=== PATIENT | female | born 1950 | race Caucasian/White ===

== ENCOUNTER → 2021-07-31 | Outpatient (CLI) | payer MEDICARE ==
[2021-07-31 14:05] LABS: HCT 41.3 % (34.0-46.0); HGB 13.4 gm/dL (11.4-16.0); MCH 30.1 pg (25.0-35.0); MCHC 32.5 g/dL (31.0-37.0); MCV 92.5 fL (80.0-100.0); Mean Platelet Volume 7.4; Platelet Count 173 k/uL (150-450); RBC 4.47 m/uL (3.80-5.40); RDW 13.8 % (11.5-15.5); WBC 8.2 k/uL (3.8-10.6)
[2021-07-31 14:14] LABS: ALT 30 U/L (4-34); AST 31 U/L (14-36); African American GFR (CKD) >90 (>60 ml/min/1.73 sqM); Alkaline Phosphatase 126 U/L (38-126); Anion Gap 8 mmol/L; Blood Urea Nitrogen 14 mg/dL (7-17); Calcium 9.3 mg/dL (8.4-10.2); Carbon Dioxide 30 mmol/L (22-30); Chloride 101 mmol/L (98-107); Glucose 100 mg/dL (74-99); Non-African American GFR(CKD) >90 (>60 ml/min/1.73 sqM); Potassium 3.4 mmol/L (3.5-5.1); Sodium 139 mmol/L (137-145); Total Bilirubin 0.5 mg/dL (0.2-1.3); Total Protein 6.9 g/dL (6.3-8.2)
[2021-07-31 14:50] LABS: INR 0.8 (<1.2); Partial Thromboplastin Time 24.8 sec (22.0-30.0); Prothrombin Time 9.4 sec (9.0-12.0)
[2021-07-31 15:14] LABS: Appearance,Urine Cloudy (Clear); Bacteria,Urine Few /hpf; Bilirubin,Urine Negative (Negative); Blood,Urine Negative (Negative); Color,Urine Yellow; Glucose,Urine (UA) Negative (Negative); Ketones,Urine Negative (Negative); Leukocyte Esterase,Urine Trace (Negative); Mucus,Urine Rare /hpf; Nitrite,Urine Negative (Negative); PH, Urine 7.5 (5.0-8.0); Protein,Urine Trace (Negative); RBC,Urine 1 /hpf (0-5); Specific Gravity,Urine 1.021 (1.001-1.035); Squamous Epithelial Cell,Urine 3 /hpf (0-4); Urobilinogen,Urine <2.0 mg/dL (<2.0); WBC,Urine 3 /hpf (0-5)
== END | disposition home or self-care (01) ==
LOC: LABPAT 13:36
PROVIDERS: ATTEND Orthopaedic Surgery Sports Medicine
DX: Z01.812 Encounter for preprocedural laboratory examination (principal)
CPT/HCPCS: 80053; 81001; 85027; 85610; 85730; 87070

== ENCOUNTER 2021-08-22 10:18 | Day surgery (SDC) | payer MEDICARE ==
[2021-08-20 10:34] VITALS: BMI 40.1
[~2021-08-22 10:18] MED LIST: ACETAMINOPHEN TAB 500 MG TAB PO PRN; DEXAMETHASONE SOD PHOSPHATE 4 MG/ML 1 ML VIAL IV ONE; GABAPENTIN 300 MG CAP PO PRN; HYDROmorphone 0.5 MG/0.5 ML SYRINGE IVP PRN; LACTATED RINGERS 1,000 ML IV SCH; MELOXICAM 7.5 MG TAB PO PRN; ONDANSETRON 4 MG/2 ML VIAL IVP ONE; ONDANSETRON 4 MG/2 ML VIAL IVP PRN; TRANEXAMIC ACID 1,000 MG in SODIUM CHLORIDE 0.9% 100 ML IVPB PRN
[2021-08-22] MEDS ORDERED: LIDOCAINE 1% (10MG/ML) FOR IV START INTRADERMA ONE (11:03)
[2021-08-22] MEDS ORDERED: MIDAZOLAM 2 MG/2 ML VIAL IVP ONE (11:41)
[2021-08-22] MEDS ORDERED: SODIUM CHLORIDE 0.9% 100 ML BAG ONE (12:55)
[2021-08-22] MEDS ORDERED: PROPOFOL 10 MG/ML 20 ML VIAL IV ONE (12:55)
[2021-08-22] MEDS ORDERED: diphenhydrAMINE 50 MG/ML 1 ML VIAL ONE (12:55)
[2021-08-22] MEDS ORDERED: fentaNYL (PF) 50 MCG/ML 2 ML AMP ONE (12:55)
[2021-08-22] MEDS ORDERED: TRANEXAMIC ACID 1,000 MG/10 ML VIAL ONE (12:55)
[2021-08-22] MEDS ORDERED: DEXAMETHASONE SOD PHOSPHATE 4 MG/ML 1 ML VIAL ONE (12:55)
[2021-08-22] MEDS ORDERED: ROPIVACAINE 5 MG/ML 30 ML VIAL ONE (12:55)
[2021-08-22] MEDS ORDERED: MIDAZOLAM 2 MG/2 ML VIAL ONE (12:55)
[2021-08-22] MEDS ORDERED: ceFAZolin 3,000 MG in SODIUM CHLORIDE 0.9% IRRIGATIO 3,000 ML IRRIGATION ONE (13:00)
[2021-08-22] MEDS ORDERED: LACTATED RINGERS 1,000 ML IV ONE (13:30)
[2021-08-22] MEDS ORDERED: HYDROmorphone 0.5 MG/0.5 ML SYRINGE IVP PRN ×2 (15:09)
[2021-08-22] MEDS ORDERED: ONDANSETRON 4 MG/2 ML VIAL IVP PRN (15:09)
[2021-08-22] MEDS ORDERED: hydrOXYzine pamoate 25 MG CAP PO PRN (15:09)
[2021-08-22] MEDS ORDERED: HYDROcodone/APAP 5-325MG 1 EACH TAB PO PRN (15:09)
[2021-08-22] MEDS ORDERED: MAGNESIUM HYDROXIDE 2,400 MG/10 ML CUP PO PRN (15:09)
[2021-08-22] MEDS ORDERED: HYDROmorphone 0.2 MG/1 ML SYRINGE IVP PRN (15:09)
[2021-08-22] MEDS ORDERED: NALOXONE 0.4 MG/ML 1 ML VIAL IV PRN (15:09)
[2021-08-22] MEDS ORDERED: ROPIVACAINE 0.2%-NS ON-Q PUMP 1,090 MG, EMPTY PAIN BALL 1 EACH MISCELLANE PRN (15:13)
--- NOTE | 2021-08-22 15:38 | XR ---
Left knee HISTORY: Status post left knee arthroplasty 2 views left knee Patient is status post left knee arthroplasty. There is anatomic alignment. Lucencies present in the soft tissues. No fracture or dislocation. IMPRESSION: Orthopedic follow-up.
[2021-08-22] MEDS: HYDROcodone/APAP 5-325MG 1 EACH TAB PO PRN (16:33)
--- NOTE | 2021-08-22 16:49 | P.ANPRN ---
Procedure Note - Anesthesia - Nerve Block Performed Left Adductor Canal Infusion Time Out Performed: Yes Date of Procedure: 08/22/21 Procedure Start Time: 11:40 Procedure Stop Time: 11:50 Location of Patient: PreOp Indication: Acute Post-Operative Pain, Requested by Surgeon Sedation Type: Sedate with meaningful contact maintained Preparation: Sterile Prep, Sterile Dressing Position: Supine Catheter: Indwelling Needle Types: Pajunk Needle Gauge: 21 Ultrasound used to visualize needle placement: Yes Ultrasound used to observe medication spread: Yes Blood Aspirated: No Pain Paresthesia on Injection Noted: No Resistance on Injection: Normal Image Stored and Saved: Yes Events: Uneventful and Well Tolerated (ropi .5% 20cc)
--- NOTE | 2021-08-22 16:51 | P.ANPRN ---
Procedure Note - Anesthesia - Nerve Block Performed Left iPack Single Time Out Performed: Yes Date of Procedure: 08/22/21 Procedure Start Time: 11:51 Procedure Stop Time: 11:56 Location of Patient: PreOp Indication: Acute Post-Operative Pain, Requested by Surgeon Sedation Type: Sedate with meaningful contact maintained Preparation: Sterile Prep Position: Supine Needle Types: Pajunk Needle Gauge: 21 Ultrasound used to visualize needle placement: Yes Ultrasound used to observe medication spread: Yes Blood Aspirated: No Pain Paresthesia on Injection Noted: No Resistance on Injection: Normal Image Stored and Saved: Yes Events: Uneventful and Well Tolerated (ropi .5% 25cc plus dexamethasone 4mg)
[2021-08-22] MEDS ORDERED: ACETAMINOPHEN TAB 325 MG TAB PO PRN (17:31)
--- NOTE | 2021-08-22 20:08 | OP ---
OPERATIVE REPORT DATE OF PROCEDURE: 08/22/2021. SURGEON: Tae Castorena M.D. ENERGY RISK MANAGEMENT ANALYST: MIRACLE Naranjo. PREOPERATIVE DIAGNOSIS: Left knee osteoarthrosis. POSTOPERATIVE DIAGNOSIS: Left knee osteoarthrosis. OPERATION: Left total knee arthroplasty. ANESTHESIA: Spinal with sedation. ESTIMATED BLOOD LOSS: 100 mL. TOURNIQUET: Tourniquet time was 57 minutes at 250 mmHg. COMPLICATIONS: None apparent. DRAINS: None. DISPOSITION: Postanesthesia care unit. INDICATIONS: Rosalind is a very pleasant 71-year-old male with longstanding history of left knee pain. History and physical examination are consistent with advanced left knee osteoarthrosis. She has been through significant nonoperative management up to this point. Further treatment options were discussed. She decided to go forward with the left total knee arthroplasty. The risks of procedure were discussed with her in detail. These risks included, but were not limited to risk of infection, nerve damage, bleeding, pain, and a small risk of deep vein thrombosis which could lead to fatal pulmonary emboli. There is also risk of loosening of the implant which could require revision operation. The patient understands these risks. All of her questions were answered to her satisfaction. Appropriate informed consent was obtained. DESCRIPTION OF THE PROCEDURE: The patient was identified in preoperative holding area. Surgical site was marked by both the patient and myself. She was given 2 grams of Ancef IV for prophylactic purposes. She was then transferred to the operative suite. She was placed supine on the operative table. Spinal anesthetic was then administered and dosed per the anesthesia without apparent complication. Examination under anesthesia was then performed. She was 2 to 3 degrees shy of full extension. She had 95 degrees of flexion. The medial collateral ligament, lateral collateral and ligament posterior cruciate ligaments were stable. Tourniquet was then placed high on the left upper thigh well-padded in preparation for surgery. The patient's left lower extremity was then prepped and draped in usual sterile fashion. Standard surgical pause undertaken to ensure the we were operating on the correct site and that appropriate preoperative antibiotics were given. All staff were in agreement and we proceeded. The outlines of the patella were marked with a surgical pen. A planned 12 cm vertical incision centered over the patella was marked with a surgical pen. The leg was then exsanguinated with an Esmarch dressing. The knee was then flexed and tourniquet inflated to 250 mmHg. Total tourniquet time for the procedure was 57 minute. Incision was then made with a 10 blade scalpel. Dissection was carried down sharply overlying fascia. Great care was taken to minimize the skin flaps. The knee was then exposed using a standard medial parapatellar approach. A small cuff of quadriceps tendon was then left for suturing. She was in a small amount of varus preoperatively. A standard medial release was then made. Superficial medial collateral ligament dissected off the bone around the posterior aspect of the proximal tibia. The medial meniscus was then excised as well. The lateral meniscus was also released anteriorly. The leg was then externally rotated. The patella was everted. The knee was flexed the retractors then placed to protect the collateral ligaments. I then proceeded to remove the infrapatellar fat pad. This was excised sharply tangentially with fibers of the patellar tendon. I then proceeded to remove the peripheral osteophytes. This was done with a rongeur. I then proceeded with the distal resection. She did have near full extension. A planned 9 mm resection was then done. Femoral canal was then entered in the midline. The femur approximately 10 mm anterior to the origin of the posterior cruciate ligament. The sarah was then advanced down the center of the femur and placed intramedullary. Based on the preoperative radiographs, the angle between the anatomic and mechanical axis of the femur was approximately 4-5 degrees. The valgus angle of the distal femoral cutting guide was then set at 4 degrees for the left knee. The distal femoral cutting guide was then advanced over the intramedullary sarah. This was seated firmly against the femur. Then as mentioned planned to take 9 mm off the distal femur. The cutting block was then secured onto the femur with pins. The jig was then removed. The distal femoral cut was made through the slot of the block. The pins were then removed. The distal cutting block was removed. The axis of the distal femoral cuts was checked with 2 flat bars. I then proceeded with femoral sizing. The posterior referencing sizing guide was held firmly against the resected distal surface of the femur. The posterior condyles were resting on the posterior plane of the guide. The sizing stylus was then placed on the anterior femur. The size was measured and measured as a size 8. I then assessed for femoral rotation. The plan was for 3 degrees external rotation. Three degrees external rotation was placed onto the jig. These holes were then marked. I then confirmed the rotation by 3 separate methods. This was done using epicondylar axis as well as Whitesides line and posterior referencing appears deemed that the external rotation was proper. I then went forward placing the femoral cutting block. This was placed over the previously placed pin holes. The Junior wing was then placed on the anterior slots to ensure that we would not notch the anterior femur with the anterior femoral cut. I then proceeded with the anterior femoral cut. This was flush with the anterior cortex of the femur. Posterior cuts were then made followed by the anterior chamfer cut, then the posterior chamfer cut. The cutting block was then removed. Throughout the resection, the collateral ligaments were protected with retractors. I then placed a trial size 8 femur. It fit very nice medial-lateral and fit flush with the distal end of the femur. The drill holes were then made. I then proceeded with the tibial cut. I planned for cruciate retaining knee. The guide was placed and set for varus valgus and for slope. The height was set for approximate 2 mm resection from the medial tibial plateau which was the lower side. I was happy with the alignment and amount of resection. The cutting block was then pinned to the proximal tibia. The alignment sarah was removed. Proximal tibia was resected with a reciprocating saw. Again, this was done with retractors protecting the collateral ligaments as well as the posterior cruciate ligament. I then proceeded to evaluate the flexion extension gaps. A 10 mm block was then placed. The flexion and extension gaps were equal. I then proceeded with resection of posterior osteophytes. Very minimal posterior osteophytes. This was done using a curved osteotome. This resected the posterior osteophytes and posterior capsule stripping was done off the posterior aspect of the femur at this time. The osteophytes were then removed. I then proceed with resection of patella. The thickness of patella was measured using the caliper. The thickness was 24 mm. The thickness of the anticipated patellar dome was taken into account. Resection was then performed and confirmed to be equal in 4 quadrants using a caliper. Approximately 14 mm of bone remained after the resection. A 32 x 8.5 mm standard patellar trial was then placed. The holes were drilled. The trial was then placed. I then proceed with sizing tibial plate. A size E tibial plate fit very nicely. I then placed the trial femur in the tibial tray and patellar button. A 10 mm trial tibial insert was also placed. The components fit very nicely. She had full extension and flexion. The extension flexion gaps were equal and stable to both varus and valgus stress. The patella tracked appropriately. Tibial tray rotation was then marked with a Bovie. This was externally rotated properly. I then proceeded with tibial preparation. I first drilled the femoral holes and removed the femoral component. The tibial tray was then set for proper external rotation as well as mediolateral placement onto the tibia. It was then pinned into place. I then proceeded with punching the keel. I then decided to proceed with cementing of all of our components. The knee was thoroughly irrigated with sterile saline solution via pulse lavage. The lateral geniculate artery was identified and cauterized. All blood was removed from the bone of the tibia femur and patella with pulse lavage. I then proceed with cementing. Two packs of antibiotic bone cement prepared on the back table by the surgical aides teacher. I then proceeded with cementing the tibia first. Cement was impacted in the keel as well as deeply seated in the bone. A second coat cement was then placed. The tibia was then impacted into place. Excess cement was removed with Kailyn's and Joker's. I then proceeded with cementing the femoral component. The femoral component was also cemented using standard technique. Excess cement was removed. A 10 mm trial insert was placed in the knee. It was brought into full extension with a constant axial load placed until the cement had hardened. The patellar component was then cemented. This was held firmly with a compressive device until the cement had dried. When the cement had dried, the knee was taken out of extension. All excess cement was removed from around the prosthesis. I then trialed the knee with a 10 mm insert. Flexion extension gaps were appropriate. The knee was stable. It came in full extension. I decided to go forward with a 10 mm medial congruent cross-linked cruciate- retaining tibial insert. Polyethylene was then placed on the tibial tray and locked into place. The knee was then reduced. The knee was again further irrigated with sterile saline solution with antibiotic added. The tourniquet was then deflated. Total tourniquet time for the procedure was 57 minutes at 250 mmHg of mercury. Final components were Cheikh Persona size 8 titanium cruciate-retaining femoral component, a size E tibial tray and a 10 mm medial congruent cruciate-retaining polyethylene insert and 32 x 8.5 mm patella. I then proceeded with closure. Again, the knee was thoroughly irrigated. The quadriceps tendon and the medial retinaculum were reapproximated with #2 Ethibond suture. The extensor mechanism was then closed with a running #2 Quill suture. Subcutaneous tissues were closed with 2-0 Vicryl interrupted suture. The skin was closed with a running 3-0 Quill suture. Dermabond was applied to the incision. Sterile compressive dressings were applied. All sponge and needle counts were deemed correct prior to closure. The patient tolerated the procedure without apparent complication. She was transferred recovery room in stable condition. MMODL / IJN: [id number] /
[2021-08-22] MEDS ORDERED: SENNOSIDES-DOCUSATE SODIUM 1 EACH TAB PO SCH (21:00)
[2021-08-22] MEDS ORDERED: ATORVASTATIN 10 MG TAB PO SCH (21:00)
[2021-08-22] MEDS ORDERED: METOPROLOL SUCCINATE (ER) 50 MG TAB.ER.24H PO SCH (21:00)
[2021-08-22] MEDS: ASPIRIN 81 MG PO SCH (21:26)
[2021-08-22] MEDS: hydrALAZINE HCL 50 MG TAB PO SCH (21:26)
[2021-08-22] MEDS: ceFAZolin 3 GM in SODIUM CHLORIDE 0.9% 100 ML IVPB SCH (21:26)
[2021-08-22] MEDS: LACTATED RINGERS 1,000 ML IV SCH (21:32)
[2021-08-23] MEDS: HYDROcodone/APAP 5-325MG 1 EACH TAB PO PRN ×3 (01:52→13:36)
[2021-08-23] MEDS: LACTATED RINGERS 1,000 ML IV SCH (03:21)
[2021-08-23] MEDS: ceFAZolin 3 GM in SODIUM CHLORIDE 0.9% 100 ML IVPB SCH (05:52)
[2021-08-23] MEDS ORDERED: PANTOPRAZOLE 40 MG TABLET PO SCH (07:30)
[2021-08-23] MEDS: ASPIRIN 81 MG PO SCH (07:43)
[2021-08-23] MEDS: hydrALAZINE HCL 50 MG TAB PO SCH (07:43)
--- NOTE | 2021-08-23 07:58 | P.PN ---
Progress Note - Text 08/23/21 726 71-year-old female status post total knee replacement by Dr. Castorena. Patient has an On-Q pump for postop pain control with the solution running at 8 mL an hour with a VAS of 0 for the anterior aspect of the knee, patient has pain predominantly located posteriorly and she needs to take oral pain medication for. Dressing clean dry and intact
[2021-08-23] MEDS ORDERED: CHOLECALCIFEROL 25 MCG (1000 IU) TABLET PO SCH (09:00)
[2021-08-23] MEDS ORDERED: SERTRALINE 25 MG TAB PO SCH (09:00)
[2021-08-23] MEDS ORDERED: NON FORMULARY DRUG (Ubidecarenone [Co Q-10] 100 MG Capsule) PO SCH (09:00)
[2021-08-23] MEDS ORDERED: hydroCHLOROthiazide 25 MG TAB PO SCH (09:00)
[2021-08-23 09:10] VITALS: BP 158/74; PULSE 62; RESP 18; TEMP 98.4
[2021-08-23 09:32] LABS: Basophils # (A) 0.02 X 10*3/uL (0.00-0.10); Basophils % (A) 0.2 %; Eosinophils # (A) 0 X 10*3/uL (0.04-0.35); Eosinophils % (A) 0 %; HCT 38.9 % (37.2-46.3); Lymphocytes # (A) 0.93 X 10*3/uL (0.90-5.00); Lymphocytes % (A) 8.1 %; MCH 29.5 pg (27.0-32.0); MCHC 30.8 g/dL (32.0-37.0); MCV 95.6 fL (80.0-97.0); Mean Platelet Volume 9.7 fL (9.5-12.2); Monocytes # (A) 0.77 X 10*3/uL (0.20-1.00); Monocytes % (A) 6.7 %; Neutrophils # (A) 9.64 X 10*3/uL (1.80-7.70); Neutrophils % (A) 84.5 %; Platelet Count 171 X 10*3/uL (140-440); RBC 4.07 X 10*6/uL (4.10-5.20); RDW 13.8 % (11.5-14.5); WBC 11.42 X 10*3/uL (4.50-10.00)
--- NOTE | 2021-08-23 09:35 | P.DS ---
Providers Expected date of discharge: 08/23/21 Attending physician: Tae Castorena Consults: 08/22/21 15:14 Consult Physician Routine Consulting Provider: Roque Cho Reason/Comments: medical management Do you want consulting provider notified?: Yes Primary care physician: Roque Cho - Discharge Diagnosis(es) (1) Status post total left knee replacement Patient was admitted to the OR on 08/22/21 to undergo a left total knee arthroplasty. She had failed conservative measures as an outpatient and desired to proceed with elective surgery after given informed consent. She underwent the above procedure which she tolerated well without complication. Postoperative hospital course has remained without complication. On day of discharge she is afebrile, vital signs stable, labs within acceptable ranges, tolerating by mouth meds and diet, voiding without difficulty, positive flatus, denies abdominal pain or calf pain, pain is controlled on oral pain medication and has no new complaints. Wound is benign, neurovascular status is intact, calf is soft and nontender, abdomen soft and nontender. Review of systems is negative for numbness, tingling, fever, chills, chest pain, shortness of breath, nausea, vomiting, dizziness, headaches, slurred speech or other. Current Visit: Yes Status: Acute Priority: Medium Procedures: left TKA Patient Condition at Discharge: Good Plan - Discharge Summary Discharge Rx Participant: No New Discharge Prescriptions: New Docusate [Colace] 100 mg PO BID #60 cap HYDROcodone/APAP 7.5-325MG [[place] 7.5-325] 1 each PO Q4HR PRN #42 tab PRN Reason: Pain Aspirin [Adult Low Dose Aspirin EC] 81 mg PO BID #60 tab No Action hydroCHLOROthiazide [Hydrodiuril] 25 mg PO QAM Omeprazole [PriLOSEC] 20 mg PO QAM Ibuprofen [Advil] 400 mg PO QAM Cholecalciferol [Vitamin D3 (25 Mcg = 1000 Iu)] 50 mcg PO DAILY Ubidecarenone [Co Q-10] 200 mg PO DAILY Sertraline HCl [Zoloft] 25 mg PO DAILY Metoprolol Succinate (ER) [Toprol Xl] 100 mg PO HS Rosuvastatin Calcium [Crestor] 5 mg PO HS hydrALAZINE HCL [Apresoline] 50 mg PO BID Acetaminophen [Tylenol Arthritis] 650 mg PO DAILY PRN PRN Reason: Pain Discharge Medication List Omeprazole [PriLOSEC] 20 mg PO QAM 01/22/15 [History] hydroCHLOROthiazide [Hydrodiuril] 25 mg PO QAM 01/22/15 [History] Ibuprofen [Advil] 400 mg PO QAM 02/23/15 [History] Acetaminophen [Tylenol Arthritis] 650 mg PO DAILY PRN 08/20/21 [History] Cholecalciferol [Vitamin D3 (25 Mcg = 1000 Iu)] 50 mcg PO DAILY 08/20/21 [History] Metoprolol Succinate (ER) [Toprol Xl] 100 mg PO HS 08/20/21 [History] Rosuvastatin Calcium [Crestor] 5 mg PO HS 08/20/21 [History] Sertraline HCl [Zoloft] 25 mg PO DAILY 08/20/21 [History] Ubidecarenone [Co Q-10] 200 mg PO DAILY 08/20/21 [History] hydrALAZINE HCL [Apresoline] 50 mg PO BID 08/20/21 [History] Aspirin [Adult Low Dose Aspirin EC] 81 mg PO BID #60 tab 08/23/21 [Rx] Docusate [Colace] 100 mg PO BID #60 cap 08/23/21 [Rx] HYDROcodone/APAP 7.5-325MG [[place] 7.5-325] 1 each PO Q4HR PRN #42 tab 08/23/21 [Rx] Follow up Appointment(s)/Referral(s): [facility], [NON-STAFF] - ([facility] will call you to schedule your first visit. ) Tae Castorena MD [STAFF PHYSICIAN] - 10 Days Activity/Diet/Wound Care/Special Instructions: Keep wound clean and dry Take meds as directed Follow-up with Dr. Castorena in office Weight bear as tolerated May shower in 3 days if no bleeding Discharge Disposition: HOME WITH HOME HEALTH SERVICES
--- NOTE | 2021-08-23 12:40 | P.CONS ---
History of Present Illness - Reason for Consult Consult date: 08/22/21 Medical management Requesting physician: Tae Castorena - Chief Complaint Left total knee arthroplasty, hypertension, edema, hyperlipidemia - History of Present Illness HISTORY OF PRESENT ILLNESS 71-year-old mildly overweight female with history of hypertension, hyperlipidemia and mild depression who has chronic edema and generalized arthralgia who developed to have severe worsening arthritis of the left knee for the last 2 years become much worse last few month. Patient has been limping and had quite bed swelling and discomfort. Patient was seen orthopedic her x-ray showed destructive joint, patient had originally steroid injection and Synvix with no help. Patient was scheduled for elective left total knee arthroplasty which was done successfully with no major competition. Patient was admitted to the floor after surgery was hemodynamically stable, her medication were restarted, patient pain is well controlled no complication at this point. REVIEW OF SYSTEMS Constitutional: No fever, no chills, no night sweats. No weight change. No weakness, fatigue or lethargy. No daytime sleepiness. EENT: No headache. No blurred vision or double vision, no loss of vision. No loss of Hearing, no ringing in the ears, no dizziness. No nasal drainage or congestion. No epistaxis. No sore throat. Lungs: No shortness of breath, cough, no sputum production. No wheezing. Cardiovascular: No chest pain, no lower extremity edema. No palpitations. No paroxysmal nocturnal dyspnea. No orthopnea. No lightheadedness or dizziness. No syncopal episodes. Abdominal: No abdominal pain. No nausea, vomiting. No diarrhea. No constipation. No bloody or tarry stools.. No loss of appetite. Genitourinary: No dysuria, increased frequency, urgency. No urinary retention. Musculoskeletal: Mild myalgia arthralgia left knee pain and swelling. Integumentary: No wounds, no lesions. No rash or pruritus. No unusual b ruising. No change in hair or nails. Neurologic: No aphasia. No facial droop. No change in mentation. No head injury. No headache. No paralysis. No paresthesia. Psychiatric: No depression. No anxiety. No mood swings. Endocrine: No abnormal blood sugars. No weight change. No excessive sweating o r thirst. No cold intolerance. SOCIAL HISTORY Patient never smoked, no alcohol abuse, she is live with her she is retired for the last 4 years and still active, patient does not use any nebulizer, oxygen, does not walk with a walker at this point. She has an obstructive sleep apnea she is CPAP on regular basis. FAMILY HISTORY Her mother dying in her 50s from colon cancer, father dying is 88 from congestive heart failure cardiomyopathy, patient has 3 sister and one brother her brother from complication related to alcohol and heart disease, one of her sister had rheumatoid arthritis another one has severe polymyalgia otherwise old with chronic osteoarthritis. Patient has one child who is living and well. PHYSICAL EXAMINATION Gen: This is a 71-year-old significantly overweight sitting in a chair does not look in any respiratory distress. HEENT: Head is atraumatic, normocephalic. Pupils equal, round. Sclerae is anicteric. NECK: Supple. No JVD. No lymphadenopathy. No thyromegaly. LUNGS: Clear to auscultation. No wheezes or rhonchi. No intercostal retractions. HEART: Regular rate and rhythm. No murmur. ABDOMEN: Soft. Bowel sounds are present. No masses. No tenderness. EXTREMITIES: 1+ edema, slight discoloration from the knee down with quite bed very constrained. Her incision in the left knee looks fine with mild induration no hematoma slight discomfort in the cold area with no infection. NEUROLOGICAL: Patient is awake, alert and oriented x3. Cranial nerves 2 through 12 are grossly intact. ASSESSMENT AND PLAN 1. 1 post left total knee arthroplasty: Continue to watch patient hemodynamic status carefully, resume home meds, continue GI, DVT, and pulmonary prophylaxis protocol. 2. Hypertension: Continue hydralazine 50 mg twice a day along with metoprolol succinate 100 mg daily.. 3. Obstructive sleep apnea: Has been using CPAP on regular basis doing well with it. 4. Hyperlipidemia: Remain on Crestor 5 mg a day with no side effects for far. 5. Chronic edema: Has been using Hydrea diarrheal 25 mg a day which will be resume one or 2 days after surgery. 6. Severe gastritis and gastroesophageal Flex syndrome: Remain on Prilosec 20 mg a day with good result so far. 7. DVT prophylaxis: Patient will be on aspirin after surgery. CODE STATUS: Full code. Dr. Castorena thank you very much for the consult and psych can be any further help to please let me know. Past Medical History Past Medical History: Cancer, GERD/Reflux, Hyperlipidemia, Hypertension, Osteoarthritis (OA), Sleep Apnea/CPAP/BIPAP Additional Past Medical History / Comment(s): no cpap used, hx skin cancer History of Any Multi-Drug Resistant Organisms: None Reported Past Surgical History: Hernia Repair, Joint Replacement, Tonsillectomy, Tubal L igation Additional Past Surgical History / Comment(s): inguinal hernia repair. rt knee replacment Past Anesthesia/Blood Transfusion Reactions: Motion Sickness Past Psychological History: Depression Smoking Status: Never smoker Past Alcohol Use History: Rare Past Drug Use History: None Reported - Past Family History Sister(s) Family Medical History: Cancer Additional Family Medical History / Comment(s): breast Mother Family Medical History: Blood Disorder Additional Family Medical History / Comment(s): unknown blood disorder Medications and Allergies Home Medications Medication Instructions Recorded Confirmed Type Omeprazole [PriLOSEC] 20 mg PO QAM 01/22/15 08/20/21 History hydroCHLOROthiazide [Hydrodiuril] 25 mg PO QAM 01/22/15 08/20/21 History Ibuprofen [Advil] 400 mg PO QAM 02/23/15 08/20/21 History Acetaminophen [Tylenol Arthritis] 650 mg PO DAILY PRN 08/20/21 08/20/21 History Cholecalciferol [Vitamin D3 (25 50 mcg PO DAILY 08/20/21 08/20/21 History Mcg = 1000 Iu)] Metoprolol Succinate (ER) [Toprol 100 mg PO HS 08/20/21 08/20/21 History XL] Rosuvastatin Calcium [Crestor] 5 mg PO HS 08/20/21 08/20/21 History Sertraline HCl [Zoloft] 25 mg PO DAILY 08/20/21 08/20/21 History Ubidecarenone [Co Q-10] 200 mg PO DAILY 08/20/21 08/20/21 History hydrALAZINE HCL [Apresoline] 50 mg PO BID 08/20/21 08/20/21 History Aspirin [Adult Low Dose Aspirin EC] 81 mg PO BID #60 tab 08/23/21 Rx Docusate [Colace] 100 mg PO BID #60 cap 08/23/21 Rx HYDROcodone/APAP 7.5-325MG [[place] 1 each PO Q4HR PRN #42 tab 08/23/21 Rx 7.5-325] Allergies Allergy/AdvReac Type Severity Reaction Status Date / Time nickel Allergy Unknown Verified 08/22/21 10:37 Physical Exam Vitals: Vital Signs Temp Pulse Pulse Resp BP Pulse Ox 08/23/21 08:00 98.4 F 62 18 158/74 95 08/23/21 01:36 98.6 F 76 16 185/75 96 08/22/21 20:50 98.2 F 71 18 132/62 92 L 08/22/21 17:45 67 142/72 98 08/22/21 17:30 62 136/68 97 08/22/21 17:15 68 139/70 97 08/22/21 17:00 68 136/74 96 08/22/21 16:45 58 L 149/81 94 L 08/22/21 16:30 58 L 154/72 97 08/22/21 16:15 57 L 152/82 98 08/22/21 16:00 97.7 F 63 16 153/78 97 08/22/21 15:50 63 16 153/77 96 08/22/21 15:35 53 L 16 160/73 97 08/22/21 15:20 54 L 16 161/74 98 08/22/21 15:07 97.2 F L 63 18 153/70 97 Intake and Output 08/22/21 08/23/21 08/23/21 22:59 06:59 14:59 Intake Total 486 Balance 486 Intake: IV 50 Intake, IV Titration 200 Amount Lactated Ringers 1,000 ml 200 @ 100 mls/hr IV .Q10H [facility] Rx#:[id number] Oral 236 Other: # Voids 2 # Bowel Movements 0 Weight 122.1 kg Results CBC & Chem 7: 08/23/21 05:46 08/22/21 11:14 Labs: Abnormal Lab Results - Last 24 Hours (Table) 08/23/21 Range/Units 05:46 WBC 11.42 H (4.50-10.00) X 10*3/uL RBC 4.07 L (4.10-5.20) X 10*6/uL MCHC 30.8 L (32.0-37.0) g/dL Immature Gran # 0.06 H (0.00-0.04) X 10*3/uL Neutrophils # 9.64 H (1.80-7.70) X 10*3/uL Eosinophils # 0 L (0.04-0.35) X 10*3/uL
== END 2021-08-23 13:53 | disposition home health service (06) ==
LOC: OR 10:18 → 4SSUR 15:07 → OR 08-23 13:53
PROVIDERS: ATTEND Orthopaedic Surgery Sports Medicine
DX: M17.12 Unilateral primary osteoarthritis, left knee (principal); I10 Essential (primary) hypertension; E78.5 Hyperlipidemia, unspecified; H91.90 Unspecified hearing loss, unspecified ear; R60.1 Generalized edema; F32.9 Major depressive disorder, single episode, unspecified; G47.33 Obstructive sleep apnea (adult) (pediatric); Z20.822 Contact with and (suspected) exposure to COVID-19; Z97.3 Presence of spectacles and contact lenses; Z96.651 Presence of right artificial knee joint; Z98.890 Other specified postprocedural states; Z98.51 Tubal ligation status; Z83.3 Family history of diabetes mellitus; Z82.49 Family history of ischemic heart disease and other diseases of the circulatory system; Z79.899 Other long term (current) drug therapy; Z91.048 Other nonmedicinal substance allergy status
CPT/HCPCS: 97161; 64999; 64448; 76942; 84132; 85025; 88300; 87635; 73560; 27447; C1776; C1713; J2250; J1200; J1100; J0690 ×3; J2405; J3010; J2795 ×2; J2704; J1170

== ENCOUNTER → 2022-09-25 | Outpatient (CLI) | payer MEDICARE ==
--- NOTE | 2022-09-25 11:41 | P.SLEEP ---
History of Present Illness DATE: 09/25/2022 CONSULTATION/NEW PATIENT EVALUATION HISTORY OF PRESENT ILLNESS/SLEEP-WAKE EVALUATION: 72-year-old lady had been evaluated in the sleep center for possible obstructive sleep apnea hypopnea syndrome. Patient was diagnosed with obstructive sleep apnea hypopnea syndrome in another institution about 8 years ago, she was started on treatment with CPAP but was not able to use treatment and quit after less than one year using CPAP. SLEEP SCHEDULE: Usually sleep schedule from 10 PM to 6 AM. FALLING ASLEEP: No problems with falling asleep. DURING SLEEP: Patient snores and wakes up from sleep 2 times with nocturia. Positive history of sweating. No history of hypnogogical hallucinations, sleep paralysis, or cataplexy. DURING THE DAY/WAKE STATE: During the day patient has episodes of depression and anxiety. [place] sleepiness scale is 3. Patient may take 1 nap late afternoon. PAST MEDICAL HISTORY: Hypertension, history of arterial fibrillation, acid reflux, hyperlipidemia, osteoarthritis, sinuses problems. PAST SURGICAL HISTORY: Bilateral knee replacement. MEDICATIONS: Hydralazine 50 mg twice a day, omeprazole 20 mg once a day, hydrochlorothiazide 25 mg once a day, metoprolol 50 mg twice a day, xarelto 20 mg once a day. SOCIAL HISTORY: Negative for smoking, alcohol consumption occasional. FAMILY HISTORY: Hypertension, heart problems, cancer, sleep apnea, diabetes. REVIEW OF SYSTEMS: Snoring, multiple awakenings from sleep. No fevers. No double vision. No recent chest pain. No shortness of breath. No abdominal pain. No bleeding episodes. No blood in urine. No seizure episodes. PHYSICAL EXAMINATION: GENERAL: A pleasant patient without any distress. VITAL SIGNS: BP 175 4 100 , HR 67 , RR 20 , weight 278.8 pounds, height 5 foot 6 three-quarter inches, body mass index 43.9 . HEENT: PERRLA, EOMI. Evaluation of oropharynx showed tongue protrudes midline, low position of soft palate Mallampati 2-3, being uvula. NECK: Supple. No JVD. Thyroid is not palpable. 16.5 inches in circumference. LUNGS: Clear to percussion and to auscultation. Good air exchange. No wheezing or rhonchi. HEART: S1, S2 regular. No murmurs, gallops or rubs. ABDOMEN: Soft and nontender. Bowel sounds are present. No organomegaly appreciated. Obese EXTREMITIES: No clubbing or cyanosis. FIELD LABORATORY OPERATOR: Awake, alert, and oriented x3. Cranial nerves 2 to 7 intact. There is no fasciculation or atrophy noted. No focal deficits observed. ASSESSMENT: 1. Snoring, multiple awakenings from sleep, big neck 16.5 inches in circumference, history of obstructive sleep apnea hypopnea syndrome in the past. Obstructive sleep apnea-hypopnea syndrome. 2. Obesity body mass index 43.9. 3. Hypertension. 4. History of atrial fibrillation. 5 acid reflux. 6 . Hyperlipidemia. 7. Osteoarthritis. 8. History of sinuses problems. 9 . Status post bilateral knee replacement. PLAN: 1. Polysomnography for evaluation of patient's breathing during sleep. 2. CPAP/BiPAP titration if sleep study confirms obstructive sleep apnea- hypopnea syndrome. 3. Preferable position during sleep on the side. 4. No driving if patient feels any sleepiness. Patient is aware of civil and criminal liability for unsafe driving. 5. Sleep hygiene with regular sleep time for at least 7.5-8 hours. 6. Watching and losing weight. Thank you very much for referring this patient for consultation. Sincerely, Clifton Chacon MD, PhD, FAASM. Diplomat of [place] [employer], Sleep Medicine Board by [place] [employer] [place] [employer] Signal Worker [facility] [place] Past Medical History Past Medical History: Cancer, GERD/Reflux, Hyperlipidemia, Hypertension, Osteoarthritis (OA), Sleep Apnea/CPAP/BIPAP Additional Past Medical History / Comment(s): no cpap used, hx hiatal hernia, hx skin cancer History of Any Multi-Drug Resistant Organisms: None Reported Past Surgical History: Hernia Repair, Tonsillectomy, Tubal Ligation Past Anesthesia/Blood Transfusion Reactions: Motion Sickness Past Psychological History: No Psychological Hx Reported Past Alcohol Use History: None Reported - Past Family History Sister(s) Family Medical History: Cancer Additional Family Medical History / Comment(s): breast Mother Family Medical History: Blood Disorder Additional Family Medical History / Comment(s): unknown blood disorder Medications and Allergies Home Medications Medication Instructions Recorded Confirmed Type Omeprazole [PriLOSEC] 20 mg PO QAM 01/22/15 08/20/21 History hydroCHLOROthiazide [Hydrodiuril] 25 mg PO QAM 01/22/15 08/20/21 History Ibuprofen [Advil] 400 mg PO QAM 02/23/15 08/20/21 History Acetaminophen [Tylenol Arthritis] 650 mg PO DAILY PRN 08/20/21 08/20/21 History Cholecalciferol [Vitamin D3 (25 50 mcg PO DAILY 08/20/21 08/20/21 History Mcg = 1000 Iu)] Metoprolol Succinate (ER) [Toprol 100 mg PO HS 08/20/21 08/20/21 History XL] Rosuvastatin Calcium [Crestor] 5 mg PO HS 08/20/21 08/20/21 History Sertraline HCl [Zoloft] 25 mg PO DAILY 08/20/21 08/20/21 History Ubidecarenone [Co Q-10] 200 mg PO DAILY 08/20/21 08/20/21 History hydrALAZINE HCL [Apresoline] 50 mg PO BID 08/20/21 08/20/21 History Aspirin [Adult Low Dose Aspirin EC] 81 mg PO BID #60 tab 08/23/21 Rx Docusate [Colace] 100 mg PO BID #60 cap 08/23/21 Rx HYDROcodone/APAP 7.5-325MG [[place] 1 each PO Q4HR PRN #42 tab 08/23/21 Rx 7.5-325] Allergies Allergy/AdvReac Type Severity Reaction Status Date / Time nickel Allergy Unknown Verified 08/22/21 10:37 Sleep Note - Sleep Note Sleep Note: Temperature: Pulse Rate: Respiratory Rate: Blood Pressure: SpO2: Height: Weight: BMI: Neck Circumference:
== END ==
LOC: SLEEP 10:27
PROVIDERS: ATTEND Internal Medicine
DX: G47.33 Obstructive sleep apnea (adult) (pediatric) (principal); Z99.89 Dependence on other enabling machines and devices; E66.9 Obesity, unspecified; Z68.41 Body mass index [BMI] 40.0-44.9, adult; I10 Essential (primary) hypertension; I48.91 Unspecified atrial fibrillation; K21.9 Gastro-esophageal reflux disease without esophagitis; E78.5 Hyperlipidemia, unspecified; Z96.653 Presence of artificial knee joint, bilateral; Z87.09 Personal history of other diseases of the respiratory system; Z91.048 Other nonmedicinal substance allergy status
CPT/HCPCS: 99211

== ENCOUNTER → 2022-11-24 | Day surgery (SDC) | payer MEDICARE ==
[2022-11-20 09:28] VITALS: BMI 40.7
[~2022-11-24] MED LIST changes: -ACETAMINOPHEN TAB 500 MG TAB PO PRN; -DEXAMETHASONE SOD PHOSPHATE 4 MG/ML 1 ML VIAL IV ONE; -GABAPENTIN 300 MG CAP PO PRN; -HYDROmorphone 0.5 MG/0.5 ML SYRINGE IVP PRN; -MELOXICAM 7.5 MG TAB PO PRN; -ONDANSETRON 4 MG/2 ML VIAL IVP ONE; -ONDANSETRON 4 MG/2 ML VIAL IVP PRN; +PROPOFOL 10 MG/ML 20 ML VIAL IV ONE; +SODIUM CHLORIDE 0.9% 1,000 ML IV SCH; -TRANEXAMIC ACID 1,000 MG in SODIUM CHLORIDE 0.9% 100 ML IVPB PRN
[2022-11-24 10:46] VITALS: RESP 16
[2022-11-24 11:20] LABS: African American GFR (CKD) >90 (>60 ml/min/1.73 sqM); Anion Gap 7 mmol/L; Blood Urea Nitrogen 14 mg/dL (7-17); Calcium 9.2 mg/dL (8.4-10.2); Carbon Dioxide 28 mmol/L (22-30); Chloride 104 mmol/L (98-107); Glucose 103 mg/dL (74-99); Non-African American GFR(CKD) >90 (>60 ml/min/1.73 sqM); Sodium 139 mmol/L (137-145)
--- NOTE | 2022-11-24 11:23 | P.PCN ---
Date of Procedure: 11/24/22 Operative Findings: Cardioversion Report Performing physician Krish Senior M.D. Procedure performed Successful cardioversion of atrial fibrillation to normal sinus mechanism using 200 J at first attempt Indication Symptomatic atrial fibrillation Complication None Level of sedation The procedure was performed under deep sedation using propofol with COTTON CLEANER in the room Procedure description After obtaining an informed consent the patient was brought to the recovery room. Sedation was introduced using propofol with COTTON CLEANER in the room. Subsequently the patient cardioverted from atrial fibrillation to normal sinus mechanism using 200 J and first attempt Conclusion Successful cardioversion of atrial fibrillation to normal sinus mechanism using 200 J Postprocedure management Continue the current medical regimen Continue oral anticoagulation Follow-up with the patient
[2022-11-24 11:33] VITALS: TEMP 97.1
[2022-11-24 11:39] LABS: Potassium 4.4 mmol/L (3.5-5.1)
[2022-11-24 12:42] VITALS: BP 128/76; PULSE 60
== END ==
LOC: CATHCVL 10:20
PROVIDERS: ATTEND Internal Medicine Interventional Cardiology
DX: I48.19 Other persistent atrial fibrillation (principal); I10 Essential (primary) hypertension; E66.3 Overweight; E78.5 Hyperlipidemia, unspecified; Z79.01 Long term (current) use of anticoagulants
CPT/HCPCS: 80048; 92960; J2704

== ENCOUNTER → 2023-03-18 | Outpatient (CLI) | payer MEDICARE ==
--- NOTE | 2023-03-18 17:22 | P.PN ---
Subjective DATE: 03/18/2023 FOLLOW UP VISIT. Patient with obstructive sleep apnea hypopnea syndrome return to sleep center for follow-up visit. Recently patient had sleep study which documented obstructive sleep apnea hypopnea syndrome. Patient was initiated on PAP therapy and today is first visit after treatment was started. I explained to the patient and family results of sleep studies in details Patient was able to use PAP equipment every night for the whole night. The patient does not have significant problems with the mask, PAP pressure and humidification. [place] sleepiness scale is 2, which is normal. I checked information from PAP unit. PAP unit pressure 7-14, average 13.6 cm H2O. Usage is 87 % for more then 4 hours, average 6.8 hours per night. Leak is 5.5 l/m, which is in acceptable range. Apnea Hypopnea Index is 1.7, which is normal. MEDICATIONS:1. Hydralazine 50 mg twice a day 2. Omeprazole 20 mg once a day 3. Hydrochlorothiazide 25 mg once a day 4. Metoprolol 50 mg twice a day 5. Xarelto 20 mg once a day During physical exam: GENERAL: A pleasant patient without any distress. VITAL SIGNS: BP 177/78, HR 67, RR 20, weight 282.2, temperature 97.5, oxygen saturation at room air 95%. HEENT: PERRLA, EOMI.low position of soft palate, Mallapati 2 -3, large uvula.. NECK: Supple. No JVD. LUNGS: Clear to percussion and to auscultation. Good air exchange. No wheezing or rhonchi. HEART: S1, S2 regular. ABDOMEN: Soft and nontender. Slightly obese EXTREMITIES: No clubbing or cyanosis. SHIP WIRER: Awake, alert, and oriented x3. No focal deficit. Impressions: 1. Obstructive sleep apnea-hypopnea syndrome. Patient demonstrated great compliance with treatment, benefiting from treatment. 2. Hypertension. 3. History of lateral fibrillation. 4. Obesity. 5. Acid reflux. 6. Hyperlipidemia. 7. Osteoarthritis. 8. History of sinuses problems. 9. Status post bilateral knee replacement. Plan: 1. Continue using PAP equipment every night for the whole night. 2. To change air filter at least 1-2 times per month. 3. PAP unit should stay lower then position of the head. 4. Advised patient to remove all remaining water from humidifier canister daily and make it dry after each usage. Refill canister with fresh distilled water before each usage. 5. Sleep hygiene with regular time in bed for at least 8 hours. 6. Precautions related to driving. No driving if feel any sleepiness. 7. I will maintain prescription for PAP supplies including mask, tube, filters. 8. Follow up visit in 6 months or earlier if patient has any problems. 9. Watching and losing weight. Thank you very much for allowing me to participate in the management of your patient. Clifton Chacon MD, PhD, FAASM. Diplomat of [place] [employer], Sleep Medicine Board by [place] [employer] Laborer [employer] [facility] [place]
== END | disposition home or self-care (01) ==
LOC: SLEEP 16:20
PROVIDERS: ATTEND Internal Medicine
DX: G47.33 Obstructive sleep apnea (adult) (pediatric) (principal); E66.9 Obesity, unspecified; I10 Essential (primary) hypertension; E78.5 Hyperlipidemia, unspecified; K21.9 Gastro-esophageal reflux disease without esophagitis; Z96.653 Presence of artificial knee joint, bilateral; M19.90 Unspecified osteoarthritis, unspecified site; Z86.79 Personal history of other diseases of the circulatory system; Z87.09 Personal history of other diseases of the respiratory system; Z99.89 Dependence on other enabling machines and devices; Z91.048 Other nonmedicinal substance allergy status
CPT/HCPCS: 99212

== ENCOUNTER → 2023-06-12 | Outpatient (CLI) | payer MEDICARE ==
[2023-06-12 15:59] LABS: Blood Urea Nitrogen 15.2 mg/dL (9.0-27.0); Carbon Dioxide 26.9 mmol/L (21.6-31.8); Chloride 102 mmol/L (96-109); Potassium 4.2 mmol/L (3.5-5.5); Sodium 140 mmol/L (135-145)
[2023-06-12 16:13] LABS: HCT 45.3 % (37.2-46.3); HGB 14.2 d/dL (12.0-15.0); MCH 28.6 pg (27.0-32.0); MCHC 31.3 d/dL (32.0-37.0); MCV 91.3 FL (80.0-97.0); Mean Platelet Volume 10.7 FL (9.5-12.2); NRBC Per 100 WBC 0 X 10*3/uL (0.00-0.01); Platelet Count 202 X 10*3/uL (140-440); RBC 4.96 X 10*6/uL (4.10-5.20); RDW 15.1 % (11.5-14.5); WBC 8.63 X 10*3/uL (4.50-10.00)
== END | disposition home or self-care (01) ==
LOC: LABWHC1 09:15
PROVIDERS: ATTEND Internal Medicine Interventional Cardiology
DX: Z01.812 Encounter for preprocedural laboratory examination (principal); R06.02 Shortness of breath
CPT/HCPCS: 36415; 80051; 82565; 84520; 85027

== ENCOUNTER 2023-06-22 07:06 | Day surgery (SDC) | payer MEDICARE ==
[~2023-06-22 07:06] MED LIST changes: +ALPRAZolam 0.25 MG TAB PO PRN; +ALPRAZolam 0.5 MG TAB PO PRN; +ASPIRIN 325 MG TAB PO STA; -LACTATED RINGERS 1,000 ML IV SCH; +NITROGLYCERIN SL TABS 0.4 MG TAB SUBLINGUAL PRN; -PROPOFOL 10 MG/ML 20 ML VIAL IV ONE; -SODIUM CHLORIDE 0.9% 1,000 ML IV SCH
[2023-06-22] MEDS ORDERED: SODIUM CHLORIDE 0.9% 1,000 ML IV ONE (07:20)
[2023-06-22] MEDS ORDERED: LIDOCAINE 1% INJ 10MG/ML (20 ML MDV) ONE (09:19)
[2023-06-22] MEDS ORDERED: VERAPAMIL 2.5 MG/ML 2 ML AMP ONE (09:19)
[2023-06-22] MEDS ORDERED: HEPARIN SODIUM 1,000 UN/ML (10ML VL) ONE (09:21)
[2023-06-22] MEDS ORDERED: MIDAZOLAM 2 MG/2 ML VIAL IVP ONE (09:45)
[2023-06-22] MEDS ORDERED: LIDOCAINE 1% INJ 10MG/ML (5 ML VIAL-PF) SQ ONE (09:45)
[2023-06-22] MEDS ORDERED: VERAPAMIL SYRINGE (5 MG/10 ML) INTRAARTER ONE (09:47)
[2023-06-22] MEDS ORDERED: HEPARIN SODIUM 1,000 UN/ML (10ML VL) IV ONE (09:50)
[2023-06-22] MEDS ORDERED: IOPAMIDOL-370 100ML BTL INJ ONE (10:05)
[2023-06-22] MEDS ORDERED: RX INFO: IV CONTRAST WAS GIVEN 1 EACH MISC MISCELLANE PRN (10:13)
--- NOTE | 2023-06-22 10:20 | P.PCN ---
Date of Procedure: 06/22/23 Operative Findings: CARDIAC CATHETERIZATION PERFORMING PHYSICIAN: Krish Senior MD, RPVI PROCEDURE PERFORMED: 1. Selective right and left coronary angiogram 2. Left heart catheterization 3. FFR of the LAD 4. Ultrasound-guided access of the right radial artery INDICATION: chest discomfort and abnormal stress test COMPLICATION: None APPROACH: Right radial artery LEVEL OF SEDATION: Moderate with a sedation length of 20 minutes PROCEDURE DESCRIPTION: After obtaining an informed consent, the patient was brought to cardiac offset label rewinder. Local anesthesia was performed using lidocaine subcutaneously. The right radial artery was cannulated using Seldinger technique, the guidewire passed easily, following that we advanced a 5-Micronesian sheath dilator assembly, the wire and dilator were removed and sheath was flushed. Following that, 2 mg of verapamil along with 5000 unit heparin were given. Selective right and left coronary angiogram using a 6-Micronesian JR4 and JL 3.5 catheters. Following that we did left heart catheterization using 6-Micronesian pigtail catheter. The procedure was completed there was no complication. SELECTIVE CORONARY ANGIOGRAM: The right coronary artery: large-caliber vessel and dominant vessel was mild disease in the midportion Left main: Has mild disease only The left circumflex: Large-caliber vessel none dominant vessel. The LCx proximally after OM1 has intermediate lesion appears to be in the range of 40-50% The left anterior descending artery: the mid LAD has intermediate lesion appeared to be in the range of 60%. We did perform iFR and that came in to be at 0.88 HEMODYNAMICS: The LVEDP was 16 mmHg was no significant gradient across aortic valve iFR OF THE LAD After zeroing the Doppler wire and equalizing between the Doppler wire and guiding catheter we did iFR of the LAD and came in to be an 0.88 CONCLUSION: 1. Severe mid LAD disease 2. Intermediate prox. LCX dx POSTPROCEDURE MANAGEMENT: PCI of the LAD after ruling out nickel ALLERGY
[2023-06-22] MEDS: SODIUM CHLORIDE 0.9% 1,000 ML in EMPTY BAG 1 BAG IV SCH ×3 (14:48→23:58)
[2023-06-22] MEDS: PANTOPRAZOLE 40 MG TABLET PO SCH (18:05)
[2023-06-22] MEDS: SODIUM CHLORIDE 0.9% 1,000 ML IV SCH ×2 (18:35→23:58)
[2023-06-22] MEDS: METOPROLOL SUCCINATE (ER) 100 MG TAB.ER.24H PO SCH (20:59)
[2023-06-22] MEDS ORDERED: METOPROLOL SUCCINATE (ER) 50 MG TAB.ER.24H PO STA (21:00)
[2023-06-22] MEDS: ATORVASTATIN 20 MG TAB PO SCH (21:07)
[2023-06-22] MEDS: hydrALAZINE HCL 50 MG TAB PO SCH (21:07)
[2023-06-23] MEDS: SODIUM CHLORIDE 0.9% 1,000 ML in EMPTY BAG 1 BAG IV SCH ×2 (03:31→22:53)
[2023-06-23] MEDS: PANTOPRAZOLE 40 MG TABLET PO SCH ×2 (05:54→17:58)
[2023-06-23] MEDS ORDERED: ATORVASTATIN 80 MG TAB PO ONE (06:00)
[2023-06-23 06:57] LABS: Basophils % (A) 0 %; Eosinophils # (A) 0.1 k/uL (0-0.7); Eosinophils % (A) 2 %; HCT 41.8 % (34.0-46.0); HGB 13.5 gm/dL (11.4-16.0); Lymphocytes # (A) 1.4 k/uL (1.0-4.8); Lymphocytes % (A) 20 %; MCHC 32.3 g/dL (31.0-37.0); MCV 89.8 fL (80.0-100.0); Mean Platelet Volume 7.9; Monocytes # (A) 0.4 k/uL (0-1.0); Monocytes % (A) 6 %; Neutrophils % (A) 71 %; Platelet Count 180 k/uL (150-450); RBC 4.66 m/uL (3.80-5.40); RDW 14.9 % (11.5-15.5)
[2023-06-23] MEDS ORDERED: HEPARIN SODIUM,PORCINE 10,000 UNIT in SODIUM CHLORIDE 0.9% 1,000 ML IRRIGATION PRN (07:00)
[2023-06-23] MEDS ORDERED: HEPARIN SODIUM,PORCINE (1 ML) 2,500 UNIT in SODIUM CHLORIDE 0.9% 250 ML IRRIGATION PRN (07:00)
[2023-06-23 07:23] LABS: African American GFR (CKD) >90 (>60 ml/min/1.73 sqM); Anion Gap 9 mmol/L; Blood Urea Nitrogen 10 mg/dL (7-17); Calcium 8.7 mg/dL (8.4-10.2); Carbon Dioxide 21 mmol/L (22-30); Chloride 108 mmol/L (98-107); Glucose 107 mg/dL (74-99); Non-African American GFR(CKD) 89 (>60 ml/min/1.73 sqM); Potassium 3.9 mmol/L (3.5-5.1); Sodium 138 mmol/L (137-145)
--- NOTE | 2023-06-23 08:27 | P.PN ---
Subjective Progress Note Date: 06/23/23 Principal diagnosis: CAD The patient is a pleasant 73-year-old female patient with CAD as well as hypertension and dyslipidemia who underwent yesterday a heart catheterization and was found to have severe disease involving the LAD. FFR confirmed the lesion to be flow limiting. The cut she has a nickel ALLERGY we taped stent to her skin. She was seen and evaluated this morning patient has no reaction to the stent. With that being stated and going to pursue with PCI of the LAD. The examination revealed stable vital signs with regular rate and rhythm and clear breathing sounds bilaterally Assessment CAD Hypertension Dyslipidemia Nickel ALLERGY appeared to be very minimum Plan Proceed with PCI of the LAD Follow-up with the patient Objective - Vital Signs Vital signs: Vital Signs Temp 97.8 F 06/23/23 03:25 Pulse 58 L 06/23/23 03:25 Resp 16 06/23/23 03:25 BP 153/65 06/23/23 03:25 Pulse Ox 94 L 06/23/23 03:25 FiO2 Intake & Output 06/22/23 06/23/23 06/23/23 18:59 06:59 18:59 Intake Total 1460 Balance 1460 Weight 125.7 kg Intake: IV 800 Oral 660 Other: # Voids 1 1 - Labs CBC & Chem 7: 06/23/23 06:13 06/23/23 06:13 Labs: Abnormal Lab Results - Last 24 Hours (Table) 06/23/23 Range/Units 06:13 Chloride 108 H (98-107) mmol/L Carbon Dioxide 21 L (22-30) mmol/L Glucose 107 H (74-99) mg/dL
[2023-06-23] MEDS: hydrALAZINE HCL 50 MG TAB PO SCH ×2 (09:02→20:51)
[2023-06-23] MEDS: ATORVASTATIN 20 MG TAB PO SCH (20:50)
[2023-06-23] MEDS: METOPROLOL SUCCINATE (ER) 100 MG TAB.ER.24H PO SCH (20:50)
[2023-06-24 03:35] VITALS: TEMP 97.7
[2023-06-24] MEDS: SODIUM CHLORIDE 0.9% 1,000 ML in EMPTY BAG 1 BAG IV SCH ×3 (06:18→21:21)
[2023-06-24] MEDS: PANTOPRAZOLE 40 MG TABLET PO SCH ×2 (06:19→16:06)
[2023-06-24] MEDS ORDERED: VERAPAMIL 2.5 MG/ML 2 ML AMP ONE (08:24)
[2023-06-24] MEDS ORDERED: HEPARIN SODIUM 1,000 UN/ML (10ML VL) ONE (08:39)
[2023-06-24] MEDS ORDERED: ASPIRIN 325 MG TAB ONE (08:45)
[2023-06-24] MEDS ORDERED: IV FLUID CONTINUATION 1,000 ML IV ONE (08:47)
[2023-06-24] MEDS ORDERED: ASPIRIN 325 MG TAB PO ONE (08:47)
[2023-06-24] MEDS ORDERED: LIDOCAINE 1% INJ 10MG/ML (5 ML VIAL-PF) SQ ONE (09:04)
[2023-06-24] MEDS ORDERED: MIDAZOLAM 2 MG/2 ML VIAL IVP ONE (09:05)
[2023-06-24] MEDS ORDERED: VERAPAMIL SYRINGE (5 MG/10 ML) INTRAARTER ONE (09:06)
[2023-06-24] MEDS ORDERED: fentaNYL (PF) 50 MCG/ML 2 ML AMP ONE (09:08)
[2023-06-24] MEDS ORDERED: fentaNYL (PF) 50 MCG/ML 2 ML AMP IVP ONE (09:10)
[2023-06-24] MEDS: HEPARIN SODIUM 1,000 UN/ML (10ML VL) IV ONE ×2 (09:13→09:37)
[2023-06-24] MEDS ORDERED: CLOPIDOGREL 75 MG TAB ONE (09:24)
[2023-06-24] MEDS ORDERED: CLOPIDOGREL 75 MG TAB PO ONE (09:26)
[2023-06-24] MEDS ORDERED: NITROGLYCERIN 1000MCG/10ML SYRINGE INTRACORON ONE (09:26)
[2023-06-24] MEDS ORDERED: IOPAMIDOL-370 200ML BTL INJ ONE (09:34)
[2023-06-24] MEDS ORDERED: ATROPINE SULFATE 0.1 MG/ML 10ML SYRINGE IV PRN (09:37)
[2023-06-24] MEDS ORDERED: MAG HYDROX/AL HYDROX/SIMETH 30 ML CUP PO PRN (09:37)
[2023-06-24] MEDS ORDERED: RX INFO: IV CONTRAST WAS GIVEN 1 EACH MISC MISCELLANE PRN (09:37)
[2023-06-24] MEDS ORDERED: ZOLPIDEM 5 MG TAB PO PRN (09:37)
[2023-06-24] MEDS ORDERED: NITROGLYCERIN SL TABS 0.4 MG TAB SUBLINGUAL PRN (09:37)
--- NOTE | 2023-06-24 09:43 | P.PCN ---
Date of Procedure: 06/24/23 Operative Findings: PERCUTANEOUS CORONARY INTERVENTION Performing physician Krish Senior M.D. Procedure Performed: 1. Successful stenting of the mid LAD using 3.5 x 18 mm Xience drug-eluting stent with an excellent angiographic results. 2. Adjunctive use of intravascular ultrasound 3. Ultrasound-guided access of the right radial artery Indication: This is a 73-year-old female patient was experiencing symptoms of chest discomfort concerning for angina and she underwent a heart catheterization 2 days ago and that revealed intermediate lesion involving the LAD. The lesion documented to be flow-limiting using Doppler wire. Subsequently and because she has history of nickel ALLERGY we kept her in the hospital for 24 hours after we taped a stent to her skin. She had no evidence of any ALLERGIC reaction to the stent. Because of that she was brought today to undergo PCI of the LAD Approach: Right radial artery Complications: None Level of Sedation: Moderate with a sedation length of 30 minutes Procedure Discussion: After obtaining an informed consent the patient was brought to the cardiac slabbing machine operator. The right radial artery was cannulated using micropuncture technique and the micropuncture wire passed easily then I placed a 6-Persian sheath. I gave the patient 2 mg of verapamil intra-arterial and 5000 use of heparin intravenous. Subsequently I did engage the left main using JL 3.5 guiding catheter. I did wire the LAD using a run-through wire. Intravascular ultrasound was performed and showed a diameter of the LAD about 3-3.5 mm. At that point I decided to predilate using 3 mm balloon before I deployed 3.5 x 18 mm stent which was postdilated using 3.75 mm noncompliant balloon. Final angiogram and final intravascular ultrasound showed great results. The procedure was completed was no complication Postprocedure Management: 1. Dual antiplatelet therapy using aspirin and Plavix for at least 6 months 2. Aggressive cholesterol control 3. Risk factors modification
[2023-06-24] MEDS ORDERED: SODIUM CHLORIDE 0.9% 1,000 ML in EMPTY BAG 1 BAG IV SCH (09:45)
[2023-06-24 11:50] VITALS: BMI 43.4
[2023-06-24] MEDS: hydrALAZINE HCL 50 MG TAB PO SCH ×2 (12:54→20:22)
[2023-06-24] MEDS: ATORVASTATIN 20 MG TAB PO SCH (20:22)
[2023-06-24] MEDS: METOPROLOL SUCCINATE (ER) 100 MG TAB.ER.24H PO SCH (20:22)
[2023-06-25] MEDS: PANTOPRAZOLE 40 MG TABLET PO SCH (06:24)
[2023-06-25 08:25] LABS: Basophils % (A) 0 %; Eosinophils # (A) 0.1 k/uL (0-0.7); Eosinophils % (A) 2 %; HCT 42.4 % (34.0-46.0); HGB 13.8 gm/dL (11.4-16.0); Lymphocytes # (A) 1.3 k/uL (1.0-4.8); Lymphocytes % (A) 16 %; MCH 29.5 pg (25.0-35.0); MCHC 32.6 g/dL (31.0-37.0); MCV 90.4 fL (80.0-100.0); Mean Platelet Volume 7.6; Monocytes # (A) 0.4 k/uL (0-1.0); Monocytes % (A) 5 %; Neutrophils % (A) 75 %; Platelet Count 180 k/uL (150-450); RBC 4.69 m/uL (3.80-5.40)
[2023-06-25 08:55] LABS: African American GFR (CKD) >90 (>60 ml/min/1.73 sqM); Anion Gap 10 mmol/L; Blood Urea Nitrogen 9 mg/dL (7-17); Calcium 9.2 mg/dL (8.4-10.2); Carbon Dioxide 23 mmol/L (22-30); Chloride 106 mmol/L (98-107); Glucose 132 mg/dL (74-99); Non-African American GFR(CKD) 85 (>60 ml/min/1.73 sqM); Sodium 139 mmol/L (137-145)
[2023-06-25] MEDS ORDERED: CLOPIDOGREL 75 MG TAB PO SCH (09:00)
[2023-06-25] MEDS: hydrALAZINE HCL 50 MG TAB PO SCH (09:55)
--- NOTE | 2023-06-25 10:10 | P.DS ---
Providers Attending physician: Krish Senior Consults: 06/24/23 09:38 Consult Physician Routine Consulting Provider: [facility] Consult Reason/Comments: Post Interventional patient Do you want consulting provider notified?: Already Contacted Primary care physician: [facility] Course: The patient is a very pleasant 73-year-old female patient who underwent yesterday successful stenting of the LAD. She was seen this morning. She is moderately stable and she is asymptomatic. The patient is going to be discharged home on triple therapy and I will follow- up with the patient in the office. In 4 weeks from now we will stop the aspirin and continue anticoagulation and Plavix. The right radial site is soft with mildly bruises with a good pulse Plan - Discharge Summary Discharge Rx Participant: No New Discharge Prescriptions: No Action Omeprazole [PriLOSEC] 20 mg PO BID Cholecalciferol [Vitamin D3 (25 Mcg = 1000 Iu)] 1,000 unit PO DAILY Ubidecarenone [Co Q-10] 200 mg PO DAILY Apixaban [Eliquis] 5 mg PO BID Metoprolol Succinate (ER) [Toprol XL] 100 mg PO HS Rosuvastatin Calcium [Crestor] 10 mg PO HS hydrALAZINE HCL [Apresoline] 100 mg PO BID Furosemide [Lasix] 20 mg PO DAILY Potassium Chloride [Klor-Con 10 ER] 10 meq PO DAILY Discharge Medication List Omeprazole [PriLOSEC] 20 mg PO BID 01/22/15 [History] Cholecalciferol [Vitamin D3 (25 Mcg = 1000 Iu)] 1,000 unit PO DAILY 08/20/21 [History] Metoprolol Succinate (ER) [Toprol XL] 100 mg PO HS 08/20/21 [History] Rosuvastatin Calcium [Crestor] 10 mg PO HS 08/20/21 [History] Ubidecarenone [Co Q-10] 200 mg PO DAILY 08/20/21 [History] hydrALAZINE HCL [Apresoline] 100 mg PO BID 08/20/21 [History] Apixaban [Eliquis] 5 mg PO BID 06/15/23 [History] Furosemide [Lasix] 20 mg PO DAILY 06/15/23 [History] Potassium Chloride [Klor-Con 10 ER] 10 meq PO DAILY 06/15/23 [History] Follow up Appointment(s)/Referral(s): Krish Senior MD [STAFF PHYSICIAN] - 1 Week (APPOINTMENT MADE ON June @ 8:30AM ) Patient Instructions/Handouts: Moderate Sedation (DC), After Radial Heart Catheterization (GEN) Activity/Diet/Wound Care/Special Instructions: *NO LIFTING, PUSHING, OR PULLING ANYTHING OVER 5 POUNDS FOR 5 DAYS *NO DRIVING FOR 3 DAYS *YOU CAN REMOVE YOUR DRESSING TOMORROW AND YOU CAN SHOWER AT THAT TIME - DO NOT SUBMERSE YOUR PUNCTURE SITE IN WATER FOR A FEW DAYS TO PREVENT INFECTION - SO NO TUB BATHS, POOLS, HOT TUBS, DISHES, ETC *ANY SIGNS OF BLEEDING (HARDNESS, SWELLING, OR EXCESSIVE BRUISING) HOLD DIRECT PRESSURE ON YOUR PUNCTURE SITE AND COME TO THE NEAREST EMERGENCY ROOM TO GET YOUR PUNCTURE SITE LOOKED AT - DO NOT DRIVE YOURSELF! EITHER CALL EMS OR HAVE SOMEONE DRIVE YOU!
[2023-06-25] MEDS ORDERED: ASPIRIN 81 MG PO SCH (10:15)
[2023-06-25] MEDS ORDERED: APIXABAN 2.5 MG TABLET PO SCH (10:15)
[2023-06-25 12:43] VITALS: BP 136/72; PULSE 63; RESP 16
== END 2023-06-25 12:43 | disposition home or self-care (01) ==
LOC: CATHCVL 07:06 → 3SCARD 13:29 → CATHCVL 06-25 12:43
PROVIDERS: ATTEND Internal Medicine Interventional Cardiology
DX: I25.10 Atherosclerotic heart disease of native coronary artery without angina pectoris (principal); I48.19 Other persistent atrial fibrillation; E66.3 Overweight; E78.5 Hyperlipidemia, unspecified; I10 Essential (primary) hypertension; G47.33 Obstructive sleep apnea (adult) (pediatric); Z79.899 Other long term (current) drug therapy
CPT/HCPCS: 94760; 92978; 93458; 93799; 76937; 80048 ×2; 83735; 85025 ×2; 93571; C9600; C1769 ×4; C1887 ×2; C1894 ×2; C1725 ×2; C1753; C1874; J2250 ×2; J2001 ×2; J3010; J1644 ×2; Q9967 ×2; J2305

== ENCOUNTER → 2023-09-17 | Outpatient (CLI) | payer MEDICARE ==
--- NOTE | 2023-09-17 10:46 | P.PN ---
Subjective DATE: 09/17/2023 FOLLOW UP VISIT. Patient with obstructive sleep apnea hypopnea syndrome return to sleep center for follow-up visit. Information from previous visit have been reviewed. Patient is using PAP equipment every night for the whole night, getting PAP supplies in time. The patient does not have significant problems with the mask, PAP unit and humidification. Bogard sleepiness scale is 2, which is perfect. Recently patient had cardiac cath and the stent was instructed to coronary artery I checked information from PAP unit. PAP unit pressure7-14, average 11.7 cm H2O. Usage is90 % for more then 4 hours, average 7 hours and 9 minutes per night. Leak is 6.8 l/m, which is in acceptable range. Apnea Hypopnea Index is 1.5, which is normal. MEDICATIONS:1. Eliquis 2.5 mg twice a day 2. Plavix 75 mg once a day 3. Metoprolol 50 mg once a day 4. Lasix 20 mg once a day 5. Rosuvastatin 10 mg once a day 6. Hydralazine 50 mg twice a day During physical exam: GENERAL: A pleasant patient without any distress. VITAL SIGNS: BP 186/89, HR 61, RR 18 , weight 271.4, temperature 98.0, oxygen saturation at room air 94 % . HEENT: PERRLA, EOMI.low position of soft palate, Mallapati 2-3, large uvula . NECK: Supple. No JVD. LUNGS: Clear to percussion and to auscultation. Good air exchange. No wheezing or rhonchi. HEART: S1, S2 regular. ABDOMEN: Soft and nontender. Obese EXTREMITIES: No clubbing or cyanosis. RN CAMP: Awake, alert, and oriented x3. No focal deficit. Impressions: 1. Obstructive sleep apnea-hypopnea syndrome. Patient demonstrated great compli ance with treatment, benefiting from treatment. 2. Coronary artery disease, status post stent insertion . 3. Hypertension . 4. History of atrial fibrillation . 5. Obesity, patient lost 11 pounds since previous visit . 6. Acid reflux . 7. Hyperlipidemia . 8. Osteoarthritis . 9. History of sinuses problems . 10. Status post bilateral knee replacement . Plan: 1. Continue using PAP equipment every night for the whole night. 2. To change air filter at least 1-2 times per month. 3. PAP unit should stay lower then position of the head. 4. Advised patient to remove all remaining water from humidifier canister daily and make it dry after each usage. Refill canister with fresh distilled water before each usage. 5. Sleep hygiene with regular time in bed for at least 8 hours. 6. Precautions related to driving. No driving if feel any sleepiness. 7. I will maintain prescription for PAP supplies including mask, tube, filters. 8. Watching and losing weight. 9. Follow up visit in 6 months or earlier if patient has any problems. Thank you very much for allowing me to participate in the management of your patient. Clifton Chacon MD, PhD, FAASM. Diplomat of [employer], Sleep Medicine Board by [employer] Galvanizer of [facility] [place]
== END ==
LOC: 3 N SLEEP 10:09
PROVIDERS: ATTEND Internal Medicine
DX: G47.33 Obstructive sleep apnea (adult) (pediatric) (principal); I48.91 Unspecified atrial fibrillation; E66.9 Obesity, unspecified; E78.5 Hyperlipidemia, unspecified; I10 Essential (primary) hypertension; I25.10 Atherosclerotic heart disease of native coronary artery without angina pectoris; K21.9 Gastro-esophageal reflux disease without esophagitis; M19.90 Unspecified osteoarthritis, unspecified site; Z96.653 Presence of artificial knee joint, bilateral; Z95.5 Presence of coronary angioplasty implant and graft; Z79.899 Other long term (current) drug therapy; Z79.02 Long term (current) use of antithrombotics/antiplatelets; Z79.01 Long term (current) use of anticoagulants; Z86.69 Personal history of other diseases of the nervous system and sense organs; Z99.89 Dependence on other enabling machines and devices; Z91.048 Other nonmedicinal substance allergy status; Z79.82 Long term (current) use of aspirin
CPT/HCPCS: 99212

== ENCOUNTER → 2024-04-13 | Outpatient (CLI) | payer MEDICARE ==
[2024-04-13 10:28] VITALS: BP 154/75; PULSE 56; RESP 16; TEMP 97.7
--- NOTE | 2024-04-13 10:50 | P.PROGSL ---
Subjective DATE: [] FOLLOW UP VISIT. Patient with obstructive sleep apnea hypopnea syndrome return to sleep center for follow-up visit. Information from previous visit have been reviewed. Patient is using PAP equipment every night for the whole night, getting PAP supplies in time. The patient does not have significant problems with the mask, PAP unit and humidification. Apison sleepiness scale is 3, which is normal. I checked information from PAP unit. PAP unit pressure 7-14, average 10.9 cm H2O. Usage is 87% for more then 4 hours, average 6.5 hours per night. Leak is 3.5 l/m, which is in acceptable range. Apnea Hypopnea Index is 1.4, which is normal. MEDICATIONS: Please see below During physical exam: GENERAL: A pleasant patient without any distress. VITAL SIGNS: Please see below, weight 256 pounds. HEENT: PERRLA, EOMI.low position of soft palate, Mallapati 23. NECK: Supple. No JVD. LUNGS: Clear to percussion and to auscultation. Good air exchange. No wheezing or rhonchi. HEART: S1, S2 regular. ABDOMEN: Soft and nontender. Slightly obese EXTREMITIES: No clubbing or cyanosis. CERTIFIED RESPIRATORY THERAPIST: Awake, alert, and oriented x3. No focal deficit. Impressions: 1. Obstructive sleep apnea-hypopnea syndrome. Patient demonstrated good compliance with treatment, benefiting from treatment. 2. Obesity, BMI 40.7, patient lost 15 pounds comparing with previous visit. 3. Coronary artery disease, status post stent insertion. 4. Hypertension. 5. History of atrial fibrillation. 6. Acid reflux. 7. Hyperlipidemia. 8. Osteoarthritis. 9. Status post bilateral knee replacement. 10. History of sinuses problems. Plan: 1. Continue using PAP equipment every night for the whole night. 2. To change air filter at least 1-2 times per month. 3. PAP unit should stay lower then position of the head. 4. Advised patient to remove all remaining water from humidifier canister daily and make it dry after each usage. Refill canister with fresh distilled water before each usage. 5. Sleep hygiene with regular time in bed for at least 8 hours. 6. Precautions related to driving. No driving if feel any sleepiness. 7. I will maintain prescription for PAP supplies including mask, tube, filters. 8. Follow up visit in 6 months or earlier if patient has any problems. 9. Watching and continue losing weight. Thank you very much for allowing me to participate in the management of your patient. Clifton Chacon MD, PhD, FAASM. Diplomat of [employer], Sleep Medicine Board by [employer] Reversal Print Inspector of [facility] [place] Objective - Vital Signs Vital Signs: Vital Signs Temp 97.7 F 04/13/24 10:27 Pulse 56 L 04/13/24 10:27 Resp 16 04/13/24 10:27 BP 154/75 04/13/24 10:27 Pulse Ox 97 04/13/24 10:27 FiO2 Intake & Output 04/12/24 04/13/24 04/13/24 18:59 06:59 18:59 Weight 116.12 kg Home Medications: Home Medications Medication Instructions Recorded Confirmed Type Omeprazole [PriLOSEC] 20 mg PO BID 01/22/15 04/13/24 History Cholecalciferol [Vitamin D3 (25 1,000 unit PO DAILY 08/20/21 04/13/24 History Mcg = 1000 Iu)] Rosuvastatin Calcium [Crestor] 10 mg PO HS 08/20/21 04/13/24 History Ubidecarenone [Co Q-10] 200 mg PO DAILY 08/20/21 04/13/24 History hydrALAZINE HCL [Apresoline] 100 mg PO BID 08/20/21 04/13/24 History Furosemide [Lasix] 20 mg PO DAILY 06/15/23 04/13/24 History Potassium Chloride [Klor-Con 10 ER] 10 meq PO DAILY 06/15/23 04/13/24 History Apixaban [Eliquis] 2.5 mg PO BID #60 tab 06/25/23 04/13/24 Rx Aspirin EC [Ecotrin Low Dose] 81 mg PO DAILY #30 tab 06/25/23 04/13/24 Rx Clopidogrel [Plavix] 75 mg PO DAILY #90 tab 06/25/23 04/13/24 Rx Metoprolol Succinate (ER) [Toprol 50 mg PO HS #0 06/25/23 04/13/24 Rx XL] Dapagliflozin Propanediol [Farxiga] 10 mg PO DAILY 04/13/24 04/13/24 History
== END ==
LOC: 3 N SLEEP 10:12
PROVIDERS: ATTEND Internal Medicine
DX: G47.33 Obstructive sleep apnea (adult) (pediatric) (principal); E66.9 Obesity, unspecified; I25.10 Atherosclerotic heart disease of native coronary artery without angina pectoris; I10 Essential (primary) hypertension; K21.9 Gastro-esophageal reflux disease without esophagitis; E78.5 Hyperlipidemia, unspecified; I48.91 Unspecified atrial fibrillation; M19.90 Unspecified osteoarthritis, unspecified site; Z79.01 Long term (current) use of anticoagulants; Z79.899 Other long term (current) drug therapy; Z79.02 Long term (current) use of antithrombotics/antiplatelets; Z96.653 Presence of artificial knee joint, bilateral; Z87.09 Personal history of other diseases of the respiratory system; Z99.89 Dependence on other enabling machines and devices; Z68.41 Body mass index [BMI] 40.0-44.9, adult; Z95.5 Presence of coronary angioplasty implant and graft; Z91.09 Other allergy status, other than to drugs and biological substances
CPT/HCPCS: 99212

== ENCOUNTER → 2024-12-07 | Outpatient (CLI) | payer MEDICARE ==
[2024-12-07 11:02] VITALS: BP 179/95; PULSE 69; RESP 16; TEMP 97.5
--- NOTE | 2024-12-07 11:36 | P.PROGSL ---
Subjective DATE: 12/07/2024 FOLLOW UP VISIT. Patient with obstructive sleep apnea hypopnea syndrome return to sleep center for follow-up visit. Information from previous visit have been reviewed. Patient is using PAP equipment every night for the whole night, getting PAP supplies in time. The patient does not have significant problems with the mask, PAP unit and humidification. Glynn sleepiness scale is 4 which is normal. I checked information from PAP unit. PAP unit pressure 7-14, average 11.5 cm H2O. Usage is 90% for more then 4 hours, average 6.5 hours per night. Leak is low 2.8 l/m. Apnea Hypopnea Index is perfect 1.1. MEDICATIONS have been reviewed, please see below. During physical exam: GENERAL: A pleasant patient without any distress. VITAL SIGNS: Please see below, weight is 255.2 lbs. HEENT: PERRLA, EOMI.low position of soft palate, Mallapati 23. NECK: Supple. No JVD. LUNGS: Clear to percussion and to auscultation. Good air exchange. No wheezing or rhonchi. HEART: S1, S2 irregular. ABDOMEN: Soft and nontender. Slightly obese EXTREMITIES: No clubbing or cyanosis. SUPERVISOR FINISH END: Awake, alert, and oriented x3. No focal deficit. Impressions: 1. Obstructive sleep apnea-hypopnea syndrome. Patient demonstrated great compliance with treatment, benefiting from treatment. 2. Obesity, BMI 40.9. 3. Atrial fibrillation. 4. Coronary artery disease, status post stent insertion. 5. Hypertension. 6. Acid reflux. 7. Hyperlipidemia. 8. Osteoarthritis. 9. History of sinuses problems. 10. Status post bilateral knee replacement. Plan: 1. Continue using PAP equipment every night for the whole night. 2. Sleep hygiene with regular time in bed for at least 7.5-8 hours 3. PAP unit should stay lower then position of the head. 4. Advised patient to remove all remaining water from humidifier canister daily and make it dry after each usage. Refill canister with fresh distilled water before each usage. 5. Watching and losing weight. 6. Precautions related to driving. No driving if feel any sleepiness. 7. I will maintain prescription for PAP supplies including mask, tube, filters. 8. Follow up visit in 8 months or earlier if patient has any problems. Thank you very much for allowing me to participate in the management of your patient. Clifton Chacon MD, PhD, FAASM. Diplomat of [employer], Sleep Medicine Board by [employer] Legal Writing Professor of [facility] [place] Objective - Vital Signs Vital Signs: Vital Signs Temp 97.5 F L 12/07/24 11:02 Pulse 69 12/07/24 11:02 Resp 16 12/07/24 11:02 BP 179/95 12/07/24 11:02 Pulse Ox 95 12/07/24 11:02 FiO2 Intake & Output 12/06/24 12/07/24 12/07/24 18:59 06:59 18:59 Weight 115.723 kg Home Medications: Home Medications Medication Instructions Recorded Confirmed Type Omeprazole [PriLOSEC] 20 mg PO BID 01/22/15 12/07/24 History Cholecalciferol [Vitamin D3 (25 1,000 unit PO DAILY 08/20/21 04/13/24 History Mcg = 1000 Iu)] Rosuvastatin Calcium [Crestor] 10 mg PO HS 08/20/21 12/07/24 History Ubidecarenone [Co Q-10] 200 mg PO DAILY 08/20/21 12/07/24 History hydrALAZINE HCL [Apresoline] 100 mg PO BID 08/20/21 12/07/24 History Furosemide [Lasix] 20 mg PO DAILY 06/15/23 12/07/24 History Potassium Chloride [Klor-Con 10 ER] 10 mg PO DAILY 06/15/23 12/07/24 History Aspirin EC [Ecotrin Low Dose] 81 mg PO DAILY #30 tab 06/25/23 12/07/24 Rx Clopidogrel [Plavix] 75 mg PO DAILY #90 tab 06/25/23 04/13/24 Rx Dapagliflozin Propanediol [Farxiga] 10 mg PO DAILY 04/13/24 12/07/24 History Apixaban [Eliquis] 5 mg PO BID 12/07/24 History Metoprolol Succinate (ER) [Toprol 25 mg PO HS 12/07/24 12/07/24 History XL]
== END ==
LOC: 3 N SLEEP 10:10
PROVIDERS: ATTEND Internal Medicine
DX: G47.33 Obstructive sleep apnea (adult) (pediatric) (principal); E66.9 Obesity, unspecified; I48.91 Unspecified atrial fibrillation; I25.10 Atherosclerotic heart disease of native coronary artery without angina pectoris; I10 Essential (primary) hypertension; K21.9 Gastro-esophageal reflux disease without esophagitis; E78.5 Hyperlipidemia, unspecified; M19.90 Unspecified osteoarthritis, unspecified site; Z87.09 Personal history of other diseases of the respiratory system; Z96.653 Presence of artificial knee joint, bilateral; Z68.41 Body mass index [BMI] 40.0-44.9, adult; Z91.048 Other nonmedicinal substance allergy status
CPT/HCPCS: 99212